=== PATIENT | female | born 1955 | race Caucasian/White ===

== ENCOUNTER 2024-08-20 09:27 | Outpatient (CLI) | payer MEDICARE, BC | END 2024-08-20 23:59 | disposition home or self-care (01) | LOC: MRI02 09:27 | PROVIDERS: ATTEND Physician Assistant Surgical | DX: M19.011 Primary osteoarthritis, right shoulder (principal); M75.81 Other shoulder lesions, right shoulder; M25.511 Pain in right shoulder | CPT/HCPCS: 73221 ==

== ENCOUNTER 2024-10-17 09:01 | Day surgery (SDC) | payer MEDICARE, BC ==
[2024-10-11 11:07] LABS: BASOPHILS # (AUTO) 0.1 X10'3 (0-0.2); BASOPHILS % (AUTO) 1.1 % (0-1); EOSINOPHILS # (AUTO) 0.1 X10'3 (0-0.9); EOSINOPHILS % (AUTO) 2.1 % (0-6); HEMATOCRIT 42.1 % (35.0-45.0); LYMPHOCYTES # (AUTO) 1.3 X10'3 (1.1-4.8); LYMPHOCYTES % (AUTO) 20.4 % (21-51); MEAN CORPUSCULAR HEMOGLOBIN 29.9 PG (27.0-31.0); MEAN CORPUSCULAR HGB CONC 33.3 g/dL (33.0-36.5); MEAN CORPUSCULAR VOLUME 89.9 FL (78-98); MEAN PLATELET VOLUME 6.7 FL (7.4-10.4); MONOCYTES # (AUTO) 0.7 X10'3 (0-0.9); MONOCYTES % (AUTO) 10.2 % (2-12); NEUTROPHILS # (AUTO) 4.2 X10'3 (1.8-7.7); NEUTROPHILS % (AUTO) 66.2 % (42-75); PLATELET COUNT 256 X10'3 (140-440); RED BLOOD COUNT 4.68 X10'6 (4.20-5.60); RED CELL DISTRIBUTION WIDTH 16.4 % (11.5-14.5); WHITE BLOOD COUNT 6.4 X10'3 (4.5-11.0)
[2024-10-11 11:22] LABS: ALANINE AMINOTRANSFERASE 18 U/L (12-78); ALBUMIN 3.4 G/DL (3.4-5.0); ALBUMIN/GLOBULIN RATIO 0.9 (1.1-1.5); ALKALINE PHOSPHATASE 114 IU/L (46-116); ANION GAP 6 (8-16); ASPARTATE AMINO TRANSFERASE 16 U/L (10-37); BILIRUBIN,TOTAL 0.4 MG/DL (0.1-1.0); BLOOD UREA NITROGEN 24 MG/DL (7-18); CALCIUM 9.1 MG/DL (8.5-10.1); CHLORIDE 105 MMOL/L (99-107); GLUCOSE 96 MG/DL (70-104); POTASSIUM 3.9 MMOL/L (3.5-5.1); SODIUM 140 MMOL/L (135-145); eGFR 71 ML/MIN
[~2024-10-17] VITALS: Ht 175.3 cm; Wt 104.3 kg
[2024-10-17] VITALS (12 sets, daily range): BP systolic 132–180; BP diastolic 67–87; PULSE 60–88; RESP 11–16; TEMP 97.5; O2SAT 89–99
[2024-10-17] MEDS: ceFAZolin 2gm in dextrose, iso 50 ML IV ONE (05:30)
[~2024-10-17 09:01] MED LIST: AMLO5TAB16 PO; ASPI-529 PO; DOCUMENT DATE & TIME OF BETA-BLOCKER PO ONE; GABA300T28 PO; HYDR25TA4 PO; LOSA50TA64 PO; MELO-102 PO; METH-797 PO; OMEP10CA5 PO; POTA8CAP20 PO; PROBIOTIC; PROP40TA72 PO; enalaprilat 1.25mg/ml 2ml vial IV PRN; labetalol 20mg/4ml (5mg/ml) syringe IV PRN; meperidine/PF 25mg/ml syringe IV PRN; morphine 2 MG/ML inj. syringe IV PRN; morphine 4 MG/ML inj SYRINge IV PRN; ondansetron/PF 4mg/2ml inj IV PRN; proCHLORperazine 10 MG/2 ml inj IV PRN; ringers solution, lacted 1,000 ML IV SCH
[2024-10-17] MEDS: famotidine 20mg tablet PO ONE (09:41)
[2024-10-17] MEDS: INDOCYANINE GREEN 25 MG/10 ML VIAL IV ONE (09:42)
[2024-10-17] MEDS: ringers solution, lacted 1,000 ML IV SCH (09:43)
[2024-10-17] MEDS ORDERED: LIDOcaine 1% 30ml preserv. free vial ONE (10:17)
[2024-10-17] MEDS ORDERED: BUPIVAcaine 2.5mg/ml inj 50ml vial (contains preservative) ONE (10:17)
[2024-10-17] MEDS ORDERED: sevoflurane 250ml liquid IH ONE (11:17)
[2024-10-17] MEDS ORDERED: fentaNYL/PF 50MCG/1 ML 2ML syringe ONE ×2 (11:32→11:58)
[2024-10-17] MEDS ORDERED: midazolam 1 mg/ML 2ml injection ONE (11:33)
[2024-10-17] MEDS ORDERED: LIDOcaine 2% (20mg/ml) 5ml vial ONE (11:40)
[2024-10-17] MEDS ORDERED: dexamethasone sod phosphate 4mg/ml inj. ONE (11:41)
[2024-10-17] MEDS ORDERED: propofol inj 20 ML IV ONE (11:41)
[2024-10-17] MEDS ORDERED: ondansetron/PF 4mg/2ml inj ONE (11:41)
[2024-10-17] MEDS ORDERED: rocuronium 10mg/ml inj IV ONE (11:44)
[2024-10-17] MEDS ORDERED: acetaminophen 1,000mg/100ml IV 100 ML IV ONE (12:06)
[2024-10-17] MEDS ORDERED: naloxone 0.4 mg/ml inj ONE (12:57)
[2024-10-17] MEDS: oxyCODONE/APAP 5-325mg tablet PO PRN (15:09)
== END 2024-10-17 15:12 | disposition home or self-care (01) ==
LOC: PAS 09:01
PROVIDERS: ATTEND Surgery
DX: K80.10 Calculus of gallbladder with chronic cholecystitis without obstruction (principal); K21.9 Gastro-esophageal reflux disease without esophagitis; I10 Essential (primary) hypertension; Z98.890 Other specified postprocedural states; Z88.2 Allergy status to sulfonamides; Z88.6 Allergy status to analgesic agent; Z79.899 Other long term (current) drug therapy; Z82.3 Family history of stroke; Z82.49 Family history of ischemic heart disease and other diseases of the circulatory system; Z96.659 Presence of unspecified artificial knee joint; Z82.61 Family history of arthritis
CPT/HCPCS: 36415; 47563; 80053; 82948; 85025; A4215; A4618; A7000; J0131; J0690; J1100; J2003; J2250; J2310; J2405; J2704; J3010; J3490; J7030; J7120; Z7506; Z7508; Z7512; Z7610; J2710